=== PATIENT | female | born 1995 | race African-American/Black ===

== ENCOUNTER 2019-10-28 01:26 | Emergency (ER) | payer OTHER ==
--- NOTE | 2019-10-28 02:27 | ED Physician Documentation ---
PD HPI ABD PAIN - Stated complaint Stated Complaint: HEARTBURN - Chief complaint Chief Complaint: General - History obtained from History obtained from: Patient - History of Present Illness Timing - onset: How many minutes ago (20-30) Timing - duration: Minutes (20-30) Timing - details: Abrupt onset, Still present Quality: Indigestion, Other (burning, aching pain substernally up to area of lower throat) Location: Epigastric Radiation: Chest Improved by: No: Meds (tried peptobismol without improvement) Worsened by: No: Moving, Breathing Associated symptoms: Nausea. No: Fever, Vomiting Similar symptoms before: No diagnosis (has had similar symptoms attributed as reflux but typically lasts just few minutes. This was worse and persisted despite Pepto.) Review of Systems Constitutional: denies: Fever Nose: denies: Rhinorrhea / runny nose, Congestion Throat: denies: Sore throat Cardiac: denies: Palpitations, Pedal edema Respiratory: denies: Cough GI: reports: Abdominal Pain (epigastric reflux occasionally), Nausea. denies: Vomiting, Diarrhea Musculoskeletal: denies: Neck pain, Back pain Neurologic: denies: Generalized weakness, Near syncope, Altered mental status PD PAST MEDICAL HISTORY - Past Medical History Past Medical History: No Psych: Anxiety - Past Surgical History Past Surgical History: No - Present Medications Home Medications: Ambulatory Orders Medication Instructions Recorded Confirmed Famotidine 20 mg PO DAILY #30 tablet 10/28/19 Lidocaine Viscous 2% [Xylocaine 5 ml PO Q4H PRN #100 ml 10/28/19 Viscous 2%] Ondansetron Odt [Zofran] 4 mg TL Q6H PRN #10 tablet 10/28/19 - Allergies Allergies/Adverse Reactions: Allergies Allergy/AdvReac Type Severity Reaction Status Date / Time No Known Drug Allergies Allergy Verified 10/28/19 01:36 - Social History Does the pt smoke?: No Smoking Status: Never smoker Does the pt drink ETOH?: No Does the pt have substance abuse?: No - Immunizations Immunizations are current?: Yes - POLST Patient has POLST: No PD ED PE NORMAL - Vitals Vital signs reviewed: Yes - General General: Alert and oriented X 3, No acute distress, Well developed/nourished - HEENT HEENT: Moist mucous membranes, Pharynx benign - Neck Neck: Supple, no meningeal sign, No adenopathy - Cardiac Cardiac: RRR, No murmur - Respiratory Respiratory: Clear bilaterally, Other (no chestwall tenderness. ) - Abdomen Abdomen: Soft, Non distended, No organomegaly, Other (mild tender epigastric ar ea without guarding nor percussion tenderness. ) - Derm Derm: Normal color, Warm and dry - Extremities Extremities: No tenderness to palpate, No edema, No calf tenderness / cord - Neuro Neuro: Alert and oriented X 3, No motor deficit, Normal speech Results - Vitals Vitals: Vital Signs - 24 hr 10/28/19 10/28/19 10/28/19 01:33 01:47 02:44 Temperature 36.7 C Heart Rate 88 82 84 Respiratory 17 17 18 Rate Blood Pressure 125/75 107/70 112/85 H O2 Saturation 100 100 100 10/28/19 10/28/19 03:50 04:07 Temperature Heart Rate 75 66 Respiratory 14 16 Rate Blood Pressure 118/78 O2 Saturation 100 100 Oxygen O2 Source Room air - EKG (time done) 01:35 Rate: Rate (enter#) (85) Rhythm: NSR [place]: Normal Intervals: Normal [place] QRS: Normal Ischemia: Normal ST segments. No: ST elevation c/w ischemia, ST depression - Labs Labs: Laboratory Tests 10/28/19 10/28/19 02:45 02:45 WBC 9.1 RBC 3.83 L Hgb 11.3 L Hct 35.8 L MCV 93.5 MCH 29.5 MCHC 31.6 L RDW 13.2 Plt Count 176 MPV 10.2 Neut # (Auto) 5.6 Lymph # (Auto) 2.2 [place] # (Auto) 0.9 Eos # (Auto) 0.3 Baso # (Auto) 0.0 Absolute Nucleated RBC 0.00 Nucleated RBC % 0.0 Sodium 135 Potassium 4.0 Chloride 103 Carbon Dioxide 26 Anion Gap 6.0 BUN 10 Creatinine 0.7 Estimated GFR (MDRD) 125 Glucose 107 H Calcium 9.2 Total Bilirubin 0.7 AST 15 ALT 19 Alkaline Phosphatase 60 Total Protein 7.2 Albumin 3.8 Globulin 3.4 Albumin/Globulin Ratio 1.1 Lipase 45 PD MEDICAL DECISION MAKING - ED course Complexity details: re-evaluated patient (improved well with GI cocktail. LFTs and lipase normal. ), considered differential, d/w patient Departure - Departure Disposition: 01 Home, Self Care Clinical Impression: Substernal pain, Reflux esophagitis Condition: Stable Record reviewed to determine appropriate education?: Yes Instructions: ED GERD Follow-Up: ARTHUR Daniel [Provider Group] Prescriptions: Famotidine 20 mg PO DAILY #30 tablet Lidocaine Viscous 2% [Xylocaine Viscous 2%] 5 ml PO Q4H PRN #100 ml PRN Reason: Pain Ondansetron Odt [Zofran] 4 mg TL Q6H PRN #10 tablet PRN Reason: Nausea / Vomiting Comments: Use famotidine acid reducing medicine daily for the next month. Tylenol if needed for pains. Did not use any anti-inflammatories such as ibuprofen or naproxen as this can irritate your stomach. Ondansetron if needed for nausea. Add antacid such as Maalox or Mylanta as needed for heartburn symptoms and add lidocaine to it if needed. Recheck if persistent or recurrent symptoms beyond the next several days. Discharge Date/Time: 10/28/19 04:08
[2019-10-28] MEDS ORDERED: FAMOTIDINE 20 MG TABLET PO STA (02:36)
[2019-10-28] MEDS ORDERED: ONDANSETRON ODT 4 MG TABLET TL STA (02:36)
[2019-10-28] MEDS ORDERED: LIDOCAINE VISCOUS 2% 15 ML UDC MM STA (02:36)
[2019-10-28] MEDS ORDERED: MAG HYDROX/AL HYDROX/SIMETH 30 ML UDC PO STA (02:36)
[2019-10-28 02:52] LABS: BASOPHILS % (AUTO) 0.3 %; EOSINOPHILS # (AUTO) 0.3 10^3/uL (0.0-0.7); EOSINOPHILS % (AUTO) 3.6 %; HGB - HEMOGLOBIN 11.3 g/dL (12.0-16.0); LYMPHOCYTES # (AUTO) 2.2 10^3/uL (1.5-3.5); LYMPHOCYTES % (AUTO) 23.8 %; MEAN CORPUSCULAR HEMOGLOBIN 29.5 pg (27.0-31.0); MEAN CORPUSCULAR HGB CONC 31.6 g/dL (32.0-36.0); MEAN CORPUSCULAR VOLUME 93.5 fL (81.0-99.0); MEAN PLATELET VOLUME 10.2 fL (7.9-10.8); MONOCYTES # (AUTO) 0.9 10^3/uL (0.0-1.0); MONOCYTES % (AUTO) 10.3 %; NEUTROPHILS # (AUTO) 5.6 10^3/uL (1.5-6.6); NEUTROPHILS % (AUTO) 61.7 %; PLT - PLATELET COUNT 176 10^3/uL (130-450); RED BLOOD COUNT 3.83 10^6/uL (4.20-5.40); RED CELL DISTRIBUTION WIDTH 13.2 % (12.0-15.0); WHITE BLOOD COUNT 9.1 x10^3/uL (4.8-10.8)
[2019-10-28 03:03] LABS: ALBUMIN 3.8 g/dL (3.2-5.5); ALBUMIN/GLOBULIN RATIO 1.1 (1.0-2.2); BILIRUBIN,TOTAL 0.7 mg/dL (0.2-1.0); CALCIUM 9.2 mg/dL (8.5-10.3); CREATININE 0.7 mg/dL (0.4-1.0); TOTAL PROTEIN 7.2 g/dL (6.7-8.2)
[2019-10-28 04:08] VITALS: BP 118/78
== END 2019-10-28 04:08 | disposition home or self-care (01) ==
LOC: ED 01:26
DX: K21.0 Gastro-esophageal reflux disease with esophagitis (principal); R07.89 Other chest pain
CPT/HCPCS: 36415; 80053; 83690; 85025; 93005; 99284; A9270; Q0162

== ENCOUNTER 2020-12-06 11:25 | Outpatient (CLI) | payer OTHER ==
[2020-12-06 17:53] LABS: BASOPHILS % (AUTO) 0.7 %; EOSINOPHILS # (AUTO) 0.3 10^3/uL (0.0-0.7); EOSINOPHILS % (AUTO) 5.3 %; HCT - HEMATOCRIT 40.1 % (37.0-47.0); HGB - HEMOGLOBIN 12.7 g/dL (12.0-16.0); LYMPHOCYTES # (AUTO) 1.6 10^3/uL (1.5-3.5); LYMPHOCYTES % (AUTO) 27.3 %; MEAN CORPUSCULAR HEMOGLOBIN 29.4 pg (27.0-31.0); MEAN CORPUSCULAR HGB CONC 31.7 g/dL (32.0-36.0); MEAN CORPUSCULAR VOLUME 92.8 fL (81.0-99.0); MEAN PLATELET VOLUME 11.1 fL (7.9-10.8); MONOCYTES # (AUTO) 0.5 10^3/uL (0.0-1.0); NEUTROPHILS # (AUTO) 3.5 10^3/uL (1.5-6.6); NEUTROPHILS % (AUTO) 58.7 %; PLT - PLATELET COUNT 211 10^3/uL (130-450); RED BLOOD COUNT 4.32 10^6/uL (4.20-5.40); RED CELL DISTRIBUTION WIDTH 13.4 % (12.0-15.0); WHITE BLOOD COUNT 5.9 x10^3/uL (4.8-10.8)
[2020-12-06 18:08] LABS: ALBUMIN 4.2 g/dL (3.2-5.5); ALBUMIN/GLOBULIN RATIO 1.2 (1.0-2.2); ALKALINE PHOSPHATASE 76 IU/L (42-121); ALT ALANINE AMINOTRANSFERASE 15 IU/L (10-60); AST ASPARTATE AMINOTRANSFERASE 13 IU/L (10-42); BILIRUBIN,TOTAL 0.7 mg/dL (0.2-1.0); BUN - BLOOD UREA NITROGEN 10 mg/dL (6-20); CALCIUM 9.4 mg/dL (8.5-10.3); CARBON DIOXIDE - CO2 25 mmol/L (21-32); CHLORIDE 102 mmol/L (101-111); CHOL/HDL RATIO 2.9 (<4.4); CHOLESTEROL 219 mg/dL; CREATININE 0.7 mg/dL (0.4-1.0); GFR - MDRD 123 (>89); GLUCOSE 98 mg/dL (70-100); HDL CHOLESTEROL 76 mg/dL; LDL CHOLESTEROL,CALCULATED 132 mg/dL; LDL/HDL RATIO 1.7 (<4.4); POTASSIUM 4.2 mmol/L (3.5-5.0); SODIUM 137 mmol/L (135-145); TOTAL PROTEIN 7.8 g/dL (6.7-8.2); TRIGLYCERIDES 54 mg/dL; VLDL CHOLESTEROL 11 mg/dL
[2020-12-06 18:22] LABS: THYROID STIMULATING HORMONE 1.63 uIU/mL (0.34-5.60)
[2020-12-06 20:02] LABS: ESTIMATED AVERAGE GLUCOSE 126 mg/dL (70-100)
== END 2020-12-06 23:59 | disposition home or self-care (01) ==
LOC: LAB.WCP 11:25
PROVIDERS: ATTEND Nurse Practitioner
DX: R53.83 Other fatigue (principal); Z13.220 Encounter for screening for lipoid disorders; E66.9 Obesity, unspecified
CPT/HCPCS: 36415; 80053; 80061; 83036; 83721; 84443; 85025

== ENCOUNTER 2022-05-14 06:51 | Outpatient (CLI) | payer OTHER ==
[2022-05-14] MEDS ORDERED: GADOBUTROL 10 MMOL/10 ML VIAL ONE (07:10)
--- NOTE | 2022-05-14 11:10 | MRI Report ---
PROCEDURE: PELVIS W/WO INDICATIONS: POLYP OF CORPUS UTERI. Some calcified fibroid versus polyp in the uterus. CONTRAST: gadavist 9.8ml TECHNIQUE: Coronal ultra fast SE, sagittal breath-hold T2 FSE; axial T1 FSE with and without fat saturation thro ugh the pelvis. Optional long- and short-axis uterine nonbreath-hold T2 FSE through the uterus. Sag ittal or axial dynamic ultra fast GE during administration of contrast. Post-contrast axial or coron al ultra fast GE / 2-D spoiled GE with fat saturation from the iliac crests to the symphysis. Option al diffusion weighted imaging and ADC may be performed. COMPARISON: None. FINDINGS: Image quality: Excellent. Uterus: Uterus is normal in size. Endometrium is normal in thickness. Junctional zone is normal in thickness at 12 mm or less. At the uterine fundus, there is a convex appearance T2 hyperintense sig nal extending into the endometrium (series 7, image 16). Adnexa: Both ovaries are normal in size, without suspicious cystic or solid lesions. Numerous periph eral follicles of various sizes. Urinary system: Bladder wall is normal in thickness. Distal ureters are non distended. Urethra patrick ears normal in morphology. Nodes and vessels: No pelvic or inguinal adenopathy by size criteria. Iliac vessels are normal in s ize. Bowel and peritoneum: No pathologic free pelvic fluid. Inferior colon and small bowel loops are nor mal in caliber. Soft tissues: No inguinal hernias. No findings of pelvic floor incompetence in the absence of provo cation. Bones: Marrow demonstrates normal overall signal. IMPRESSION: At the uterine fundus, there is a convex appearance T2 hyperintense signal extending into the endomet rium (series 7, image 16). Findings favor a subserosal fibroid or polyp. Numerous peripheral follicles of various sizes, which can be seen in the setting of polycystic ovaria n syndrome. Reviewed by: Ramón Avelar on 05/14/2022 11:09 AM PDT Approved by: Ramón Avelar on 05/14/2022 11:09 AM PDT Station ID: [id number]
[2022-05-14] MEDS ORDERED: GADOBUTROL 10 MMOL/10 ML VIAL IVP ONE (16:45)
== END 2022-05-14 06:52 | disposition home or self-care (01) ==
LOC: DI 06:51
PROVIDERS: ATTEND Student in an Organized Health Care Education/Training Program
DX: N84.0 Polyp of corpus uteri (principal)
CPT/HCPCS: 72197; A9585

== ENCOUNTER 2022-08-08 11:15 | Outpatient (CLI) | payer OTHER ==
--- NOTE | 2022-08-08 19:23 | XRAY Report ---
PROCEDURE: Knee 2 View RT INDICATIONS: KNEE PAIN RIGHT TECHNIQUE: 2 views of the right knee(s) were acquired. COMPARISON: None. FINDINGS: Bones: No fractures or dislocations. No suspicious bony lesions. Soft tissues: No knee joint effusion. No suspicious soft tissue calcifications or masses. IMPRESSION: No acute bony abnormality. Reviewed by: Khalif Hunter MD on 08/08/2022 6:21 PM AKDT Approved by: Khalif Hunter MD on 08/08/2022 6:21 PM AKDT Station ID: [id number]
== END 2022-08-08 11:30 | disposition home or self-care (01) ==
LOC: DI.N 11:15
PROVIDERS: ATTEND Family Medicine
DX: M25.561 Pain in right knee (principal)